=== PATIENT | male | born 1985 | race Caucasian/White ===

== ENCOUNTER 2017-01-21 22:18 | Observation (INO) | payer OTHER ==
[2017-01-21] MEDS ORDERED: ASPIRIN 81 MG CHEW PO STA (22:42)
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
[2017-01-21 23:19] LABS: Basophils # (A) 0.1 k/uL (0-0.2); Basophils % (A) 0 %; CH 27.3; CHCM 31.9; Eosinophils # (A) 0.1 k/uL (0-0.7); Eosinophils % (A) 1 %; HCT 46.5 % (39.0-53.0); HDW 2.59; HGB 14.7 gm/dL (13.0-17.5); Hypochromasia Slight; Luc # (Auto) 0.12; Luc % (Auto) 1; Lymphocytes # (A) 1.2 k/uL (1.0-4.8); Lymphocytes % (A) 9 %; MCH 27.1 pg (25.0-35.0); MCHC 31.7 g/dL (31.0-37.0); MCV 85.6 fL (80.0-100.0); Mean Platelet Volume 6.6; Monocytes # (A) 0.5 k/uL (0-1.0); Monocytes % (A) 4 %; Neutrophils % (A) 85 %; RBC 5.43 m/uL (4.30-5.90); RDW 15.2 % (11.5-15.5); WBC (Perox) 12.47
[2017-01-21 23:27] LABS: ALT 22 U/L (21-72); AST 18 U/L (17-59); Alkaline Phosphatase 87 U/L (38-126); Anion Gap 13 mmol/L; Blood Urea Nitrogen 8 mg/dL (9-20); Calcium 9.8 mg/dL (8.4-10.2); Carbon Dioxide 22 mmol/L (22-30); Chloride 108 mmol/L (98-107); Glucose 101 mg/dL (74-99); Non-African American GFR(MDRD) >60 (>60 ml/min/1.73 sqM); Potassium 4.4 mmol/L (3.5-5.1); Sodium 143 mmol/L (137-145); Total Bilirubin 0.7 mg/dL (0.2-1.3); Total Protein 7.9 g/dL (6.3-8.2)
[2017-01-21 23:42] LABS: Creatine Kinase 28 U/L (55-170)
[2017-01-21] MEDS ORDERED: KETOROLAC 30 MG/ML 1 ML VIAL IVP STA (23:42)
[2017-01-21 23:54] LABS: Creatine Kinase MB 0.4 ng/mL (0.0-2.4); INR 1.2 (<1.1); Partial Thromboplastin Time 26.2 sec (22.0-30.0); Prothrombin Time 11.5 sec (9.0-12.0); Troponin I <0.012 ng/mL (0.000-0.034)
--- NOTE | 2017-01-21 23:55 | XR ---
EXAM: XR Chest, 1 View CLINICAL HISTORY: Reason: chest pain TECHNIQUE: Frontal view of the chest. COMPARISON: No relevant prior studies available. FINDINGS: Lungs: Unremarkable. No consolidation. Pleural space: Unremarkable. No pneumothorax. Heart: Cardiac silhouette is within normal limits given AP technique Mediastinum: Unremarkable. Bones/joints: Unremarkable. IMPRESSION: No acute cardiopulmonary process.
[2017-01-22] MEDS ORDERED: RX INFO: IV CONTRAST WAS GIVEN 1 EACH MISC MISCELLANE PRN (00:10)
[2017-01-22] MEDS ORDERED: MORPHINE SULFATE 4 MG/ML SYRINGE IV STA (00:35)
[2017-01-22] MEDS ORDERED: oxyCODONE ER 20 MG TAB.ER.12H PO STA (02:01)
--- NOTE | 2017-01-22 02:16 | CT ---
EXAM: CT Left Lower Extremity Without Intravenous Contrast, Hip CLINICAL HISTORY: Reason: Pain TECHNIQUE: Axial computed tomography images of the left hip without intravenous contrast. Coronal and sagittal reformats were obtained. CTDI is 98.90 MGy and DLP is 3278.60 mGy-cm. This CT exam was performed using one or more of the following dose reduction techniques: automated exposure control, adjustment of the mA and/or kV according to patient size, and/or use of iterative reconstruction technique. COMPARISON: No relevant prior studies available. FINDINGS: Bones/joints: Unremarkable. No acute fracture. No dislocation. Soft tissues: Partially imaged fluid density focus posterior to the lower lumbar spine, extending laterally, posterior to the left gluteal musculature. This measures 13.9 x 3.3 x 4.5 cm where seen. IMPRESSION: 1. No acute osseous abnormality of the left hip. 2. Incompletely imaged subcutaneous fluid collection posterior to the lumbar spine and extending laterally, posterior to the left gluteal musculature. Differential includes hematoma versus infection/abscess. Ultrasound or dedicated CT could be used for further evaluation.
--- NOTE | 2017-01-22 02:46 | CT ---
EXAM: CT Angiography Chest With Intravenous Contrast CLINICAL HISTORY: Reason: Pain TECHNIQUE: Axial computed tomographic angiography images of the chest with intravenous contrast using pulmonary embolism protocol. Coronal and sagittal reformats were obtained. CTDI is 158.10 (Surestart) MGy and DLP is 863.00 MGy-cm. This CT exam was performed using one or more of the following dose reduction techniques: automated exposure control, adjustment of the mA and/or kV according to patient size, and/or use of iterative reconstruction technique. MIP reconstructed images were created and reviewed. COMPARISON: No relevant prior studies available. FINDINGS: Pulmonary arteries: Evaluation of peripheral pulmonary arteries is limited due to artifacts related to patient's body habitus and motion. No central pulmonary embolism. Aorta: No acute findings. No thoracic aortic aneurysm. Lungs: Unremarkable. No mass. No consolidation. Pleural space: Unremarkable. No significant effusion. No pneumothorax. Heart: Unremarkable. No cardiomegaly. No significant pericardial effusion. Bones/joints: Degenerative changes of the bilateral acromioclavicular joints. No acute fracture. Lymph nodes: Unremarkable. No enlarged lymph nodes. Liver: Hepatic steatosis. IMPRESSION: 1. No acute findings. 2. Evaluation of peripheral pulmonary arteries is limited due to artifacts related to patient's body habitus and motion. No central pulmonary embolism.
[2017-01-22] MEDS ORDERED: ONDANSETRON 4 MG/2 ML VIAL IVP PRN (02:56)
[2017-01-22] MEDS ORDERED: NALOXONE 0.4 MG/ML 1 ML VIAL IV PRN (02:56)
[2017-01-22] MEDS ORDERED: ACETAMINOPHEN TAB 325 MG TAB PO PRN (02:56)
[2017-01-22] MEDS ORDERED: IV VANCOMYCIN PER PHARMACY 1 EACH MISC MISCELLANE PRN (03:00)
[2017-01-22] MEDS ORDERED: FUROSEMIDE 20 MG TAB PO PRN (03:01)
[2017-01-22] MEDS ORDERED: CARISOPRODOL 350 MG TAB PO PRN (03:01)
[2017-01-22] MEDS ORDERED: VANCOMYCIN 2,500 MG in SODIUM CHLORIDE 0.9% 500 ML IVPB ONE (04:00)
[2017-01-22 04:10] VITALS: BMI 67.8
[2017-01-22] MEDS: SODIUM CHLORIDE 0.9% 1,000 ML IV SCH ×4 (04:52→22:54)
[2017-01-22] MEDS: NAPROXEN 250 MG TAB PO SCH ×3 (04:55→21:04)
[2017-01-22] MEDS: GABAPENTIN 300 MG CAP PO SCH ×3 (04:55→21:03)
[2017-01-22] MEDS: HYDROmorphone 1 MG/ML 1 ML SYRINGE IVP PRN ×6 (06:20→22:53)
[2017-01-22] MEDS: FAMOTIDINE 20 MG TAB PO SCH ×2 (08:18→21:04)
[2017-01-22] MEDS: hydrOXYzine PAMOATE 25 MG CAP PO SCH ×3 (08:18→21:04)
[2017-01-22] MEDS ORDERED: ERGOCALCIFEROL 50,000 UNIT CAP PO SCH (09:00)
--- NOTE | 2017-01-22 11:56 | P.PN ---
Progress Note - Text Patient seen and evaluated. Because of location and depth of tissue, recommend IR drainage instead. Plan discussed with patient and care team.
[2017-01-22] MEDS: VANCOMYCIN 2,500 MG in SODIUM CHLORIDE 0.9% 500 ML IVPB SCH ×2 (12:07→19:21)
[2017-01-22] MEDS: HEPARIN SODIUM,PORCINE 5,000 UNIT/ML 1 ML VIAL SQ SCH ×3 (12:08→22:53)
[2017-01-22] MEDS ORDERED: POTASSIUM CHLORIDE ER 10 MEQ TAB.ER.PRT PO PRN (15:54)
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
[2017-01-22] MEDS ORDERED: HYDROmorphone 1 MG/ML 1 ML SYRINGE IVP PRN (19:52)
[2017-01-22] MEDS: MORPHINE SULFATE ER 60 MG TABLET PO SCH (21:04)
[2017-01-23] MEDS: VANCOMYCIN 2,500 MG in SODIUM CHLORIDE 0.9% 500 ML IVPB SCH (03:13)
[2017-01-23] MEDS: HYDROmorphone 1 MG/ML 1 ML SYRINGE IVP PRN ×4 (05:48→22:04)
[2017-01-23] MEDS: GABAPENTIN 300 MG CAP PO SCH ×3 (08:07→20:36)
[2017-01-23] MEDS: HEPARIN SODIUM,PORCINE 5,000 UNIT/ML 1 ML VIAL SQ SCH ×3 (08:07→20:36)
[2017-01-23] MEDS: FAMOTIDINE 20 MG TAB PO SCH ×2 (08:07→20:35)
[2017-01-23] MEDS: NAPROXEN 250 MG TAB PO SCH ×3 (08:08→20:36)
--- NOTE | 2017-01-23 08:57 | XR ---
EXAMINATION TYPE: XR pelvis AP view, XR Hip Complete LT DATE OF EXAM: 01/23/2017 CLINICAL HISTORY: Pelvic and left hip pain. TECHNIQUE: 2 AP frontal views of of the pelvis are obtained. Two views of the left hip are obtained. COMPARISON: CT left hip from one day earlier. FINDINGS: There is no acute fracture/dislocation evident in the pelvis. The hip and sacroiliac joints appear s ymmetric and unremarkable. The overlying soft tissue appears unremarkable. Two views of right hip show no acute fracture or dislocation. No focal lytic or sclerotic lesion see n in the proximal right femur. The overlying soft tissue is unremarkable. IMPRESSION: There is no acute fracture or dislocation in the pelvis or left hip.
[2017-01-23] MEDS ORDERED: NON-FORMULARY DRUG (Phentermine Hcl [Adipex-P] 37.5 MG) PO SCH (09:00)
[2017-01-23] MEDS ORDERED: VANCOMYCIN TROUGH DUE 1 EACH MISC MISCELLANE ONE (10:00)
[2017-01-23 10:01] LABS: Basophils % (A) 1 %; CH 27.2; CHCM 30.5; Eosinophils # (A) 0.2 k/uL (0-0.7); Eosinophils % (A) 3 %; HCT 43.3 % (39.0-53.0); HDW 2.49; HGB 13.1 gm/dL (13.0-17.5); Hypochromasia Moderate; Luc # (Auto) 0.13; Luc % (Auto) 2; Lymphocytes # (A) 1.7 k/uL (1.0-4.8); Lymphocytes % (A) 24 %; MCHC 30.3 g/dL (31.0-37.0); MCV 89.3 fL (80.0-100.0); Mean Platelet Volume 6.6; Monocytes # (A) 0.4 k/uL (0-1.0); Monocytes % (A) 5 %; Neutrophils # (A) 4.7 k/uL (1.3-7.7); Neutrophils % (A) 66 %; RBC 4.85 m/uL (4.30-5.90); RDW 15.2 % (11.5-15.5); WBC 7.1 k/uL (3.8-10.6); WBC (Perox) 7.14
[2017-01-23 10:07] LABS: Anion Gap 8 mmol/L; Blood Urea Nitrogen 10 mg/dL (9-20); Calcium 8.9 mg/dL (8.4-10.2); Carbon Dioxide 21 mmol/L (22-30); Chloride 113 mmol/L (98-107); Glucose 122 mg/dL (74-99); Non-African American GFR(MDRD) >60 (>60 ml/min/1.73 sqM); Potassium 4.3 mmol/L (3.5-5.1); Sodium 142 mmol/L (137-145)
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
[2017-01-23] MEDS: hydrOXYzine PAMOATE 25 MG CAP PO SCH ×2 (10:40→18:11)
[2017-01-23] MEDS: MORPHINE SULFATE ER 60 MG TABLET PO SCH ×2 (10:45→20:35)
--- NOTE | 2017-01-23 14:47 | P.PN ---
Subjective A 31-year-old super morbidly obese male seen with the surgical attending this morning. Patient is being seen by surgical service at the request of the attending for left gluteal abscess with cellulitis. Dr. Baker discussed with the patient at the bedside the plan would be to have interventional radiology address the left gluteal abscess possible infected hematoma on the left. As evident on a CAT scan involving the left extremity which did show left gluteal area that measured 13.9 x 3 x 3 x 4 x 4. Patient has agreed to proceed the timing of the suture defer to interventional radiology Objective - Vital Signs Vital signs: Vital Signs Temp 98.5 F 01/23/17 13:39 Pulse 74 01/23/17 13:39 Resp 16 01/23/17 13:39 BP 120/59 01/23/17 13:39 Pulse Ox 99 01/23/17 13:39 Intake & Output 01/22/17 01/23/17 01/23/17 18:59 06:59 18:59 Intake Total 1250 2350 2540 Output Total 1200 Balance 1250 1150 2540 Intake: Intake, IV Titration 1250 1800 1700 Amount Sodium Chloride 0.9% 1, 414 166 3489 000 ml @ 150 mls/hr IV . Q6H40M [facility] Rx#:[id number] Vancomycin 2,500 mg In 500 1500 500 Sodium Chloride 0.9% 500 ml @ 167 mls/hr IVPB Q8H [facility]HA Rx#:[id number] Oral 550 840 Output: Urine 1200 Other: Voiding Method Toilet Urinal Toilet # Voids 4 3 - Exam Physical exam 31-year-old super morbidly obese male resting in bed watching TV appears in no acute distress Lungs posterior diminished at the bases otherwise adequate air movement Heart S1-S2 audible and regular Abdomen super morbid obese soft not distended left gluteal area positive tenderness red no break in skin integrity palpable firmness noted. Urinating no difficulty Skin excoriation noted to the skin folds to the abdominal wall Extremities patient reports having mild left hip pain. Trace pedal edema - Labs CBC & Chem 7: 01/23/17 09:32 01/23/17 09:32 Labs: Abnormal Lab Results - Last 24 Hours (Table) 01/21/17 01/21/17 01/23/17 Range/Units 23:09 23:09 09:32 MCHC 30.3 L (31.0-37.0) g/dL ESR 56 H (0-15) mm/hr Chloride (98-107) mmol/L Carbon Dioxide (22-30) mmol/L Glucose (74-99) mg/dL C-Reactive Protein 31.3 H (<10.0) mg/L Vancomycin Trough ug/mL 01/23/17 01/23/17 Range/Units 09:32 09:32 MCHC (31.0-37.0) g/dL ESR (0-15) mm/hr Chloride 113 H (98-107) mmol/L Carbon Dioxide 21 L (22-30) mmol/L Glucose 122 H (74-99) mg/dL C-Reactive Protein (<10.0) mg/L Vancomycin Trough 34.0 H* ug/mL Microbiology - Last 24 Hours (Table) 01/22/17 17:10 Urine Culture - Preliminary Urine,Clean Catch Assessment and Plan Plan: Impression Super morbid obesity BMI 67 Present on admission left gluteal firm area likely an abscess extending laterally posterior to the left gluteal musculature Chronic left hip pain Chronic pain syndrome Plan Because of the location and the depth of the tissue involving the left gluteal abscess recommend IR drainage instead discussed with the patient agrees to proceed Your medical management Pain control We'll reevaluate in the morning if there are no further surgical issues will sign off DVT and GI prophylaxis The above dictated assessment and findings were discussed with dr riley . Impression and the plan of care have been dictated as directed. Tawana Manrique nurse practitioner acting as a scribe for dr riley
[2017-01-23] MEDS: SODIUM CHLORIDE 0.9% 1,000 ML IV SCH ×4 (17:38→23:23)
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
[2017-01-23] MEDS: LACTATED RINGERS 1,000 ML IV SCH (22:19)
[2017-01-24 01:10] VITALS: RESP 16
[2017-01-24] MEDS: HYDROmorphone 1 MG/ML 1 ML SYRINGE IVP PRN ×5 (02:09→23:16)
[2017-01-24 07:19] LABS: Basophils % (A) 1 %; CH 26.8; CHCM 30.3; Eosinophils # (A) 0.3 k/uL (0-0.7); Eosinophils % (A) 5 %; HCT 41.4 % (39.0-53.0); HDW 2.52; HGB 12.8 gm/dL (13.0-17.5); Hypochromasia Moderate; Luc # (Auto) 0.17; Luc % (Auto) 3; Lymphocytes # (A) 1.7 k/uL (1.0-4.8); Lymphocytes % (A) 24 %; MCH 27.5 pg (25.0-35.0); MCV 88.7 fL (80.0-100.0); Mean Platelet Volume 6.5; Monocytes # (A) 0.4 k/uL (0-1.0); Monocytes % (A) 6 %; Neutrophils # (A) 4.2 k/uL (1.3-7.7); Neutrophils % (A) 62 %; RBC 4.66 m/uL (4.30-5.90); WBC 6.8 k/uL (3.8-10.6); WBC (Perox) 7.24
[2017-01-24 07:42] LABS: Anion Gap 8 mmol/L; Blood Urea Nitrogen 13 mg/dL (9-20); Calcium 8.8 mg/dL (8.4-10.2); Carbon Dioxide 22 mmol/L (22-30); Chloride 112 mmol/L (98-107); Glucose 96 mg/dL (74-99); Non-African American GFR(MDRD) >60 (>60 ml/min/1.73 sqM); Potassium 4.8 mmol/L (3.5-5.1); Sodium 142 mmol/L (137-145)
[2017-01-24] MEDS: HEPARIN SODIUM,PORCINE 5,000 UNIT/ML 1 ML VIAL SQ SCH ×3 (08:08→23:18)
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
[2017-01-24] MEDS: NAPROXEN 250 MG TAB PO SCH ×3 (08:09→21:20)
[2017-01-24] MEDS: MORPHINE SULFATE ER 60 MG TABLET PO SCH ×2 (08:10→20:26)
[2017-01-24] MEDS: hydrOXYzine PAMOATE 25 MG CAP PO SCH ×3 (08:11→21:22)
[2017-01-24] MEDS: GABAPENTIN 300 MG CAP PO SCH ×3 (08:11→21:20)
[2017-01-24] MEDS: FAMOTIDINE 20 MG TAB PO SCH ×2 (08:12→20:26)
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
[2017-01-24] MEDS: SODIUM CHLORIDE 0.9% 1,000 ML IV SCH ×3 (11:20→20:28)
--- NOTE | 2017-01-24 11:29 | P.PN ---
Subjective 31-year-old male being seen this morning currently resting in bed. Patient is aware of the plan of care. Patient is scheduled tomorrow for IR to do guided imaging of drainage involving the left hip seroma . Patient has a known history of symptomatic seroma which has been treated at [facility]. Patient reports having focal left hip pain. Patient did have a CAT scan which was consistent with a very large fluid collection involving the left hip. Orthopedic consultation has been requested for the persistent left hip pain orthopedic agrees about drainage of a chronic seroma of the left hip. Objective - Vital Signs Vital signs: Vital Signs Temp 98.8 F 01/24/17 07:00 Pulse 68 01/24/17 07:00 Resp 16 01/24/17 07:00 BP 129/71 01/24/17 07:00 Pulse Ox 97 01/24/17 07:00 Intake & Output 01/23/17 01/24/17 01/24/17 18:59 06:59 18:59 Intake Total 2540 1875 472 Output Total 500 400 Balance 2040 1475 472 Weight 226.796 kg Intake: Intake, IV Titration 1700 1575 Amount Sodium Chloride 0.9% 1, 1200 1575 000 ml @ 150 mls/hr IV . Q6H40M [facility] Rx#:[id number] Vancomycin 2,500 mg In 500 Sodium Chloride 0.9% 500 ml @ 167 mls/hr IVPB Q8H [facility] Rx#:[id number] Oral 840 300 472 Output: Urine 500 400 Other: Voiding Method Toilet Toilet Urinal # Voids 3 4 - Exam Physical exam 31-year-old super morbidly obese male resting in bed patient verbalizes an understanding of the plan of care Lungs posterior diminished at the bases otherwise adequate air movement Heart S1-S2 audible and regular Abdomen super morbid obese soft not distended left gluteal area positive tenderness red no break in skin integrity palpable firmness noted. Urinating no difficulty Skin excoriation noted to the skin folds to the abdominal wall Extremities patient reports having mild left hip pain. Trace pedal edema - Labs CBC & Chem 7: 01/24/17 06:57 01/24/17 06:57 Labs: Abnormal Lab Results - Last 24 Hours (Table) 01/24/17 01/24/17 Range/Units 06:57 06:57 Hgb 12.8 L (13.0-17.5) gm/dL Chloride 112 H (98-107) mmol/L Microbiology - Last 24 Hours (Table) 01/22/17 17:10 Urine Culture - Final Urine,Clean Catch 01/22/17 16:25 Blood Culture - Preliminary Blood No Growth after 24 hours Assessment and Plan Plan: Impression Super morbid obesity BMI 67 lost over 110 pounds on his own seeking evaluation for the bariatric program for weight loss Present on admission left gluteal firm area likely an abscess extending laterally posterior to the left gluteal musculature Chronic left hip pain suspect due to symptomatic seroma left hip Chronic pain syndrome Plan Because of the location and the depth of the tissue involving the left gluteal abscess recommend IR drainage discussed with the patient agrees to proceed tentatively scheduled for January 25 Your medical management Pain control Tenure conditions by infectious disease DVT and GI prophylaxis The above dictated assessment and findings were discussed with dr riley . Impression and the plan of care have been dictated as directed. Tawana Manrique nurse practitioner acting as a scribe for dr riley
--- NOTE | 2017-01-24 19:49 | P.PN ---
Progress Note - Text Patient seen and evaluated. I had a prolonged discussion regarding his chronic left hip pain. I had discussed with the interventional radiologist twice including yesterday and today where CT drainage or ultrasound drainage of his left hip was declined by the radiologist as it is a chronic seroma. Patient reports eagerness to pursue some option. He sees a pain specialist in the [facility] system. Alternatives including referral to interventional radiologist at [facility] for evaluation of his chronic left hip seroma may be of benefit. Otherwise, patient is seeking bariatric care. He was advised to attend a bariatric seminar so that we may proceed with evaluation for bariatric surgery. To date the patient has lost well over 100+ pounds on his own and will likely benefit with surgical intervention. Otherwise, management of chronic left hip seroma per primary team. We'll follow as needed.
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
[2017-01-24] MEDS: LACTATED RINGERS 1,000 ML IV SCH (20:17)
[2017-01-25] MEDS: DOCUSATE 100 MG CAP PO PRN ×2 (00:08→14:40)
[2017-01-25] MEDS: SODIUM CHLORIDE 0.9% 1,000 ML IV SCH ×2 (03:13→11:25)
[2017-01-25] MEDS: HYDROmorphone 1 MG/ML 1 ML SYRINGE IVP PRN ×3 (06:04→16:15)
[2017-01-25 08:00] LABS: Anion Gap 7 mmol/L; Blood Urea Nitrogen 12 mg/dL (9-20); Calcium 8.9 mg/dL (8.4-10.2); Carbon Dioxide 24 mmol/L (22-30); Chloride 109 mmol/L (98-107); Glucose 87 mg/dL (74-99); Non-African American GFR(MDRD) >60 (>60 ml/min/1.73 sqM); Potassium 4.8 mmol/L (3.5-5.1); Sodium 140 mmol/L (137-145)
[2017-01-25] MEDS: HEPARIN SODIUM,PORCINE 5,000 UNIT/ML 1 ML VIAL SQ SCH ×2 (08:06→16:14)
[2017-01-25] MEDS: FAMOTIDINE 20 MG TAB PO SCH (08:07)
[2017-01-25] MEDS: GABAPENTIN 300 MG CAP PO SCH ×2 (08:07→16:12)
[2017-01-25] MEDS: NAPROXEN 250 MG TAB PO SCH ×2 (08:07→16:14)
[2017-01-25] MEDS: MORPHINE SULFATE ER 60 MG TABLET PO SCH (08:08)
[2017-01-25] MEDS: hydrOXYzine PAMOATE 25 MG CAP PO SCH ×2 (08:09→16:19)
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
--- NOTE | 2017-01-25 08:31 | PN ---
DATE OF SERVICE: 01/24/2017 Reason for followup is left gluteal fluid collection, question of infection. INTERVAL HISTORY: The patient is afebrile, has been breathing comfortably. Denies significant chest pain or shortness of breath. No cough, no abdominal pain. Pain in the groin area persists, but no worsening. On examination, blood pressure 154/85 with a pulse of 84, temperature 97, he is 99% on room air. General description is a middle-age male, lying in bed in no distress. RESPIRATORY SYSTEM: Unlabored breathing. Clear to auscultation anteriorly. HEART: S1, S2. Regular rate and rhythm. ABDOMEN: Soft, no tenderness. LABS: Hemoglobin is 12.8, white count 6.6 with a BUN of 13, creatinine 0.73. Blood culture has been negative. DIAGNOSTIC IMPRESSION AND PLAN: Patient with left gluteal fluid collection that has been there chronically for a couple of years making it to be less likely an infectious etiology. Awaiting the CT-guided drainage, the fluid should be sent for cultures, both aerobic and anaerobic. Will hold on any empiric antibiotic at this point, until patient received review of these cultures. Continue supportive care.
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
--- NOTE | 2017-01-25 13:05 | P.PN ---
Subjective The patient is seen and evaluated at bedside. He continues to complain of chronic left hip pain. His symptoms are unchanged. He has been up ambulating to the restroom. Per staff, drainage is unable to be performed by radiology at our facility. Transfer is planned. Objective - Vital Signs Vital signs: Vital Signs Temp 98.7 F 01/25/17 07:00 Pulse 63 01/25/17 07:00 Resp 16 01/25/17 07:00 BP 120/74 01/25/17 07:00 Pulse Ox 96 01/25/17 07:00 Intake & Output 01/24/17 01/25/17 01/25/17 18:59 06:59 18:59 Intake Total 472 150 Output Total 1000 Balance -528 150 Intake: Oral 472 150 Output: Urine 1000 Other: Voiding Method Toilet Urinal # Voids 2 1 - Exam Patient is morbidly obese. He has mild hip pain with motion. He has sustained dorsiflexion and plantarflexion. Sensation and circulatory status is intact. - Labs CBC & Chem 7: 01/24/17 06:57 01/25/17 07:06 Labs: Abnormal Lab Results - Last 24 Hours (Table) 01/25/17 Range/Units 07:06 Chloride 109 H (98-107) mmol/L Microbiology - Last 24 Hours (Table) 01/22/17 16:25 Blood Culture - Preliminary Blood No Growth after 48 hours Assessment and Plan (1) Chronic left hip pain Status: Acute (2) Morbid obesity Status: Chronic Plan: Agree with current plan of transfer [facility] workup and care.
[2017-01-25 14:03] VITALS: BP 113/70; PULSE 83; TEMP 98.6
--- NOTE | 2017-01-25 14:10 | PN ---
DATE OF SERVICE: 01/25/2017 Reason for followup is left gluteal fluid collection and question of abscess. INTERVAL HISTORY: The patient is afebrile. He is currently breathing comfortably. Patient denies significant chest pain, shortness of breath or cough or any worsening pain in the groin area. On examination, blood pressure 120/74 with a pulse of 63, temperature 98.7. He is 96% on room air. General description is a middle-age male lying in bed, in no distress. RESPIRATORY SYSTEM: Unlabored breathing. Clear to auscultation anteriorly. HEART: S1, S2, regular rate and rhythm. ABDOMEN: Soft, no tenderness. LABS: BUN of 12 with a creatinine of 0.74. Blood culture has been negative. DIAGNOSTIC IMPRESSION AND PLAN: Patient with a left gluteal area fluid collection which is chronic for clinically doubt infection as the patient afebrile, white count normal. Blood culture has been negative. Would recommend holding on an antibiotic therapy. Waiting for the CT-guided drainage of the same fluid, possibly at [facility] which should be sent for cultures to rule out any infectious etiology. Continue supportive care.
== END 2017-01-25 16:58 | disposition short-term general hospital (02) ==
LOC: EC 22:18 → 3SUR 01-22 02:56 → OBSVTOIN 01-23 08:22 → INTOOBSV 01-23 08:22
PROVIDERS: ADMIT Hospitalist; ATTEND Hospitalist
DX: L02.416 Cutaneous abscess of left lower limb (principal); E66.01 Morbid (severe) obesity due to excess calories; F90.9 Attention-deficit hyperactivity disorder, unspecified type; M19.90 Unspecified osteoarthritis, unspecified site; G89.4 Chronic pain syndrome; M25.552 Pain in left hip; T14.8 Other injury of unspecified body region; G47.30 Sleep apnea, unspecified; R26.9 Unspecified abnormalities of gait and mobility; R73.9 Hyperglycemia, unspecified; Z68.44 Body mass index [BMI] 60.0-69.9, adult; Z79.891 Long term (current) use of opiate analgesic; Z79.899 Other long term (current) drug therapy; V29.9XXA Motorcycle rider (driver) (passenger) injured in unspecified traffic accident, initial encounter; Y92.9 Unspecified place or not applicable
CPT/HCPCS: 96376 ×5; 96361 ×3; 96365 ×2; 96366; 96372 ×4; 96375 ×3; 99285; 36415; 94760 ×2; 93005; 97161; 97165; 85379; 80053; 80048 ×3; 85652; 82550; 82553; 83735; 84484; 85025 ×3; 80202; 85610; 85730; 86140; 87040; 87086; 71010; 72170; 73502; 71275; 73700; G0378 ×4; J3370 ×2; J2270; J1644 ×4; Q9967; J1170 ×4; 96374

== ENCOUNTER 2017-02-18 14:45 | Emergency (ER) | payer OTHER ==
[2017-02-18 14:54] VITALS: BP 136/70; PULSE 108; RESP 20; TEMP 98.1
[2017-02-18] MEDS ORDERED: oxyCODONE-APAP 10-325MG 1 EACH TAB PO PRN (15:27)
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
== END 2017-02-18 16:27 | disposition home or self-care (01) ==
LOC: EC 14:45
DX: G89.29 Other chronic pain (principal); M25.552 Pain in left hip; Z79.899 Other long term (current) drug therapy
CPT/HCPCS: 99283

== ENCOUNTER → 2017-02-19 | Outpatient (CLI) | payer OTHER ==
--- NOTE | 2017-02-20 07:15 | XR ---
EXAMINATION TYPE: XR shoulder complete RT, 3 VIEWS DATE OF EXAM ORDERED: 02/19/2017 HISTORY: [id number] rt shld pain. COMPARISON: None. FINDINGS: No fracture, dislocation or other acute osseous lesion is seen. IMPRESSION: NO ACUTE OSSEOUS LESION.
== END | disposition home or self-care (01) ==
LOC: RADXRYALE 15:20
PROVIDERS: ATTEND Family Medicine
DX: M25.511 Pain in right shoulder (principal)

== ENCOUNTER 2017-02-23 17:00 | Emergency (ER) | payer OTHER ==
[2017-02-23 17:35] VITALS: BP 147/68; TEMP 97.3
[2017-02-23] MEDS ORDERED: MORPHINE SULFATE 4 MG/ML SYRINGE IM STA (17:47)
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
[2017-02-23] MEDS ORDERED: KETOROLAC 60 MG/2 ML VIAL IM STA (17:52)
[2017-02-23 18:01] VITALS: PULSE 87; RESP 20
--- NOTE | 2017-02-23 18:24 | XR ---
EXAMINATION TYPE: XR Hip Complete RT DATE OF EXAM: 02/23/2017 COMPARISON: 01/23/2017 HISTORY: Pain, fall TECHNIQUE: 2 view right hip FINDINGS: There is narrowing of the joint space compatible with moderate osteoarthritic degenerative change. Small amount of acetabular spurring is present. No acute fractures evident. No significant ch hiram from the comparison is evident. IMPRESSION: 1. No acute fracture. 2. Moderate degenerative changes right hip.
== END 2017-02-23 18:56 | disposition home or self-care (01) ==
LOC: EC 17:00
DX: S70.01XA Contusion of right hip, initial encounter (principal); M16.0 Bilateral primary osteoarthritis of hip; Z79.891 Long term (current) use of opiate analgesic; Z79.899 Other long term (current) drug therapy; W01.0XXA Fall on same level from slipping, tripping and stumbling without subsequent striking against object, initial encounter
CPT/HCPCS: 73502; 99283; 96372; J1885

== ENCOUNTER 2017-03-05 12:38 | Emergency (ER) | payer OTHER ==
[2017-03-05 12:44] VITALS: BP 166/73; PULSE 104; RESP 18; TEMP 97.8
[2017-03-05] MEDS ORDERED: TOPICAL SKIN ADHESIVE 1 EACH AMP TOPICAL ONE (12:57)
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
== END 2017-03-05 13:15 | disposition home or self-care (01) ==
LOC: EC 12:38
DX: I83.892 Varicose veins of left lower extremity with other complications (principal); Z79.1 Long term (current) use of non-steroidal anti-inflammatories (NSAID); Z79.891 Long term (current) use of opiate analgesic; Z79.899 Other long term (current) drug therapy
CPT/HCPCS: 12001; 99284